=== PATIENT | male | born 1955 | race Caucasian/White ===

== ENCOUNTER 2018-07-29 10:08 | Emergency (ER) | payer OTHER, BC ==
[~2018-07-29] VITALS: Ht 167.6 cm; Wt 54.9 kg
[2018-07-29 10:21] VITALS: BP 119/73; Ht 167.6 cm; Wt 54.9 kg
[2018-07-29 11:02] LABS: BASOPHIL % 0.3 % (0-2)
[2018-07-29 11:15] LABS: CALCIUM 8.7 mg/dL (8.5-10.1); CARBON DIOXIDE 37.9 mmol/L (21-32); CHLORIDE SERUM 100 mmol/L (98-107); CREATININE SERUM 0.7 mg/dL (0.7-1.3); GFR1 > 60 mL/min; GLUCOSE SERUM 129 mg/dL (74-106); PLATELET COUNT 409 x10^3mcL (130-400); POTASSIUM SERUM 3.1 mmol/L (3.5-5.1); RED CELL DISTRIBUTION WIDTH 19.1 % (11.5-14.5); SODIUM SERUM 141 mmol/L (136-145)
[2018-07-29 11:22] LABS: ALKALINE PHOSPHATASE 73 U/L (46-116); ALT/SGPT 27 U/L (16-63); AST/SGOT 17 U/L (15-37); BILIRUBIN TOTAL 0.3 mg/dL (0.20-1.00)
[2018-07-29 11:38] LABS: ALBUMIN 2.3 g/dL (3.4-5.0); TOTAL PROTEIN, SERUM 6.1 g/dL (6.4-8.2)
== END 2018-07-29 14:38 | disposition home or self-care (01) ==
LOC: ED 10:08
PROVIDERS: Emergency Medicine
DX: E86.0 Dehydration (principal); E87.6 Hypokalemia; R22.0 Localized swelling, mass and lump, head; R22.43 Localized swelling, mass and lump, lower limb, bilateral; Z93.0 Tracheostomy status; Z93.1 Gastrostomy status; Z98.890 Other specified postprocedural states
CPT/HCPCS: 83880; J7030; Q0092